=== PATIENT | female | born 1940 ===

== ENCOUNTER 2016-04-05 11:00 | Outpatient (RCR) | payer OTHER | END 2016-04-17 | disposition home or self-care (01) | LOC: PTY 11:00 | DX: M75.02 Adhesive capsulitis of left shoulder (principal); M54.2 Cervicalgia; M54.9 Dorsalgia, unspecified; Z95.810 Presence of automatic (implantable) cardiac defibrillator ==

== ENCOUNTER 2016-04-19 11:00 | Outpatient (RCR) | payer OTHER | END 2016-05-15 | disposition home or self-care (01) | LOC: PTY 11:00 | DX: M75.02 Adhesive capsulitis of left shoulder (principal); M54.2 Cervicalgia; M54.9 Dorsalgia, unspecified; Z95.810 Presence of automatic (implantable) cardiac defibrillator ==